=== PATIENT | male | born 1965 | race Caucasian/White ===

== ENCOUNTER 2024-03-11 16:19 | Emergency (ER) | payer MEDICARE, OTHER ==
[~2024-03-11] VITALS: Ht 190.5 cm; Wt 95.0 kg
[2024-03-11 16:22] VITALS: O2SAT 100
[2024-03-11 19:10] LABS: BASOPHILS % 0.9 % (0.0-2.0); EOSINOPHILS % 4.5 % (0.0-5.0); HEMATOCRIT. 45.1 % (42.0-52.0); HEMOGLOBIN. 15.5 g/dL (14.0-18.0); LYMPHOCYTES % 18.6 % (20.0-50.0); MEAN CORPUSCULAR HEMOGLOBIN 33.8 pg (28.0-32.0); MEAN CORPUSCULAR HGB CONC 34.4 g/dL (31.0-37.0); MEAN CORPUSCULAR VOLUME 98.2 fL (80.0-94.0); MEAN PLATELET VOLUME 8.1 fl (7.4-10.4); MONOCYTES % 9.1 % (2.0-8.0); NEUTROPHILS % 66.9 % (40.0-76.0); PLATELET 250 x1000/uL (130-400); RED CELL DISTRIBUTION WIDTH 13.8 % (11.6-14.6); WHITE BLOOD COUNT 7.4 x1000/uL (4.5-11.0)
[2024-03-11 19:22] LABS: CHLORIDE 105 mEq/L (98-107); POTASSIUM 3.7 mEq/L (3.5-5.1); SODIUM 137 mEq/L (136-145)
[2024-03-11 19:23] LABS: CALCIUM 9.5 mg/dL (8.7-10.4); CARBON DIOXIDE 28 mEq/L (21-32)
[2024-03-11] MEDS: IBUPROFEN 600MG TABLET PO ONE (19:26)
[2024-03-11 19:28] LABS: CREATININE 0.9 mg/dL (0.6-1.3); GLUCOSE 84 mg/dL (70-105); UREA NITROGEN BLOOD 16 mg/dL (9-23)
[2024-03-11 19:31] LABS: TROPONIN I HIGH SENSITIVITY < 4 ng/L (3.0-53)
[2024-03-11] MEDS ORDERED: IBUP-2029 MT (19:34)
[2024-03-11] MEDS ORDERED: LIDO700A30 TP (19:34)
[2024-03-11 20:25] VITALS: BP 151/90; PULSE 60; RESP 17; TEMP 36.66960; O2SAT 99
== END 2024-03-11 20:28 | disposition home or self-care (01) ==
LOC: ER 16:19
DX: S22.31XA Fracture of one rib, right side, initial encounter for closed fracture (principal); Z86.59 Personal history of other mental and behavioral disorders; W18.30XA Fall on same level, unspecified, initial encounter; Y93.89 Activity, other specified; Y92.89 Other specified places as the place of occurrence of the external cause; Y99.8 Other external cause status
CPT/HCPCS: 36415; 71101; 80048; 84484; 85025; 93005; 99285

== ENCOUNTER 2024-08-15 10:48 | Emergency (ER) | payer MEDICARE, MEDICAID ==
[~2024-08-15] VITALS: Ht 180.3 cm; Wt 86.0 kg
[~2024-08-15 10:48] MED LIST: IBUP-2029 MT; LIDO700A30 TP
[2024-08-15 10:51] VITALS: TEMP 36.8; O2SAT 97
[2024-08-15] MEDS ORDERED: IBUP-2029 MT (11:59)
[2024-08-15 13:03] VITALS: BP 168/95; PULSE 83; RESP 18
[2024-08-15] MEDS: IBUPROFEN 600MG TABLET PO ONE (13:03)
== END 2024-08-15 14:57 | disposition home or self-care (01) ==
LOC: ER 10:48
DX: M79.661 Pain in right lower leg (principal); M79.662 Pain in left lower leg; M79.652 Pain in left thigh; I10 Essential (primary) hypertension; Z86.59 Personal history of other mental and behavioral disorders
CPT/HCPCS: 93970; 99284